=== PATIENT | female | born 1965 | race Two or more races ===

== ENCOUNTER 2024-01-12 15:00 | Outpatient (RCR) | payer MEDICAID, SELFPAY ==
--- NOTE | 2023-12-25 12:04 | PT.ODAYNRPT ---
PT Outpatient Daily Note OP Daily Note Outpatient Physical Therapy Treatment Date: 12/25/23 Visit Reasons: Left shoulder surgery Subjective: Continued L shoulder soreness and tightness Objective: See F/S for therex Ice x5' MHP during wand therex x5' Assessment: Pain limits overpressure into PROM FF, abd. Good PROM into ER to about 80 deg but abd limited to about 90 deg. Plan: Improve ROM of L shoulder Length of Time (minutes) of Treatment: 30 Minutes Procedure Charges Therapeutic Exercise 30 minutes: Yes
--- NOTE | 2023-12-27 09:37 | PT.ODAYNRPT ---
PT Outpatient Daily Note OP Daily Note Outpatient Physical Therapy Treatment Date: 12/27/23 Visit Reasons: Left shoulder surgery Subjective: Continued L shoulder soreness and tightness Objective: See F/S for therex Ice x5' MHP during wand therex x5' Assessment: Pain limits overpressure into PROM FF, abd. Good PROM into ER to about 80 deg but abd limited to about 90 deg. Plan: Improve ROM of L shoulder Length of Time (minutes) of Treatment: 30 Minutes Procedure Charges Therapeutic Exercise 30 minutes: Yes
--- NOTE | 2024-01-03 09:48 | PT.ODAYNRPT ---
PT Outpatient Daily Note OP Daily Note Outpatient Physical Therapy Treatment Date: 01/03/24 Visit Reasons: Left shoulder surgery Subjective: Pt reports L shoulder is still stiff and achy. Objective: Please see flow sheet for ther ex list. Assessment: Pt demonstrates poor AAROM due to pain response. Plan: Continue with POC, progress per post op protocol. Length of Time (minutes) of Treatment: 30 Minutes Procedure Charges Therapeutic Exercise 30 minutes: Yes
--- NOTE | 2024-01-05 13:56 | PT.ODAYNRPT ---
PT Outpatient Daily Note OP Daily Note Outpatient Physical Therapy Treatment Date: 01/05/24 Visit Reasons: Left shoulder surgery Subjective: Pt c/o painful and stiff shoulder. Objective: Please see flow sheet for ther ex list. Assessment: Pt guarded during PROM of L shoulder resulting in poor ROM. Plan: Continue with POC. Length of Time (minutes) of Treatment: 30 Minutes Procedure Charges Therapeutic Exercise 30 minutes: Yes
--- NOTE | 2024-01-09 15:45 | PT.ODAYNRPT ---
PT Outpatient Daily Note OP Daily Note Outpatient Physical Therapy Treatment Date: 01/09/24 Visit Reasons: Left shoulder surgery Subjective: Pt reports L shoulder soreness, stiffness and pain. Objective: Please see flow sheet for ther ex list. Assessment: Pt highly guarded and pain response limiting ROM during interventions assigned. Plan: Continue with POC. Length of Time (minutes) of Treatment: 30 Minutes Procedure Charges Therapeutic Exercise 30 minutes: Yes
--- NOTE | 2024-01-12 15:32 | PT.ODAYNRPT ---
PT Outpatient Daily Note OP Daily Note Outpatient Physical Therapy Treatment Date: 01/12/24 Visit Reasons: Left shoulder surgery Subjective: Pt reports L shoulder is really stiff and sore. Objective: Please see flow sheet for ther ex list. Assessment: Performed PROM, ROM limited due to pain response. Continued with focus on restoring ROM per post op protocol. Plan: Continue with POC. Length of Time (minutes) of Treatment: 30 Minutes Procedure Charges Therapeutic Exercise 30 minutes: Yes
== END 2024-01-20 23:59 | disposition home or self-care (01) ==
LOC: CPTX 15:00
PROVIDERS: PCP Orthopaedic Surgery; Referring Provider Orthopaedic Surgery; Visit Provider Orthopaedic Surgery
DX: M25.512 Pain in left shoulder (principal); I10 Essential (primary) hypertension; Z98.890 Other specified postprocedural states
CPT/HCPCS: 97110

== ENCOUNTER 2024-02-13 09:30 | Outpatient (RCR) | payer MEDICAID, SELFPAY ==
--- NOTE | 2024-01-22 12:20 | PT.ODAYNRPT ---
PT Outpatient Daily Note OP Daily Note Outpatient Physical Therapy Treatment Date: 01/22/24 Visit Reasons: left shoulder surgery Subjective: pt. states difficulty when extending elbow, pt. presents with L elbow stiffness, reports pain when reaching overhead per AROM flexion ther-ex Objective: See F/S for therex Assessment: pt. presents with L elbow stiffness with pain would benefit from PT to increase ROM and decrease pain. Pt can reach to about 100 deg into FF in supine and 95 deg into abduction Plan: continue PT per POC Length of Time (minutes) of Treatment: 30 Minutes Procedure Charges Therapeutic Exercise 30 minutes: Yes
--- NOTE | 2024-02-05 11:29 | PT.ODAYNRPT ---
PT Outpatient Daily Note OP Daily Note Outpatient Physical Therapy Treatment Date: 02/05/24 Visit Reasons: left shoulder surgery Subjective: Pt. reports pain when reaching overhead per AROM flexion ther-ex Objective: See F/S for therex Assessment: Pt can reach to about 100 deg into FF in supine and 95 deg into abduction Plan: continue PT per POC Length of Time (minutes) of Treatment: 30 Minutes Procedure Charges Therapeutic Exercise 30 minutes: Yes
--- NOTE | 2024-02-07 14:36 | PT.ODAYNRPT ---
PT Outpatient Daily Note OP Daily Note Outpatient Physical Therapy Treatment Date: 02/07/24 Visit Reasons: left shoulder surgery Subjective: Pt. reports pain when reaching overhead per AROM flexion ther-ex Objective: See F/S for therex Assessment: Pt can reach to about 100 deg into FF in supine and 95 deg into abduction Plan: continue PT per POC Length of Time (minutes) of Treatment: 30 Minutes Procedure Charges Therapeutic Exercise 30 minutes: Yes
--- NOTE | 2024-02-13 10:34 | PT.ODAYNRPT ---
PT Outpatient Daily Note OP Daily Note Outpatient Physical Therapy Treatment Date: 02/13/24 Visit Reasons: left shoulder surgery Subjective: Pt reports L shoulder is still stiff and painful. Feels pain has been the worst these few days, might be due to cold. Objective: Please see flow sheet for ther ex list. Assessment: Poor progress with interventions in clinic due to pt pain response and ROM limitation. Plan: Continue with POC. Length of Time (minutes) of Treatment: 30 Minutes Procedure Charges Therapeutic Exercise 30 minutes: Yes
== END 2024-02-20 23:59 | disposition home or self-care (01) ==
LOC: CPTX 09:30
PROVIDERS: PCP Orthopaedic Surgery; Referring Provider Orthopaedic Surgery; Visit Provider Orthopaedic Surgery
DX: M25.512 Pain in left shoulder (principal); Z98.890 Other specified postprocedural states
CPT/HCPCS: 97110

== ENCOUNTER 2024-03-01 13:00 | Outpatient (RCR) | payer MEDICAID, SELFPAY ==
--- NOTE | 2024-02-23 13:32 | PT.ODAYNRPT ---
PT Outpatient Daily Note OP Daily Note Outpatient Physical Therapy Treatment Date: 02/23/24 Visit Reasons: Left shoulder surgery Subjective: Pt reports progress is slow, feels R elbow is also interfering with L shoulder progress. Objective: Please see flow sheet for ther exlist. Assessment: Performed PROM within pt tolerance in shoulder ER and shoulder flexion. Plan: Continue with POC. Procedure Charges Therapeutic Exercise 30 minutes: Yes
--- NOTE | 2024-02-28 15:05 | PT.ODAYNRPT ---
PT Outpatient Daily Note OP Daily Note Outpatient Physical Therapy Treatment Date: 02/28/24 Visit Reasons: Left shoulder surgery Subjective: Pt c/o shoulder stiffness, mentioned it feeling like it is stuck when trying to reach overhead. Pt shared she had a follow up with doctor and she will be having an x-ray done on L elbow. Objective: Please see flow sheet for ther ex list. Assessment: Pt progress is slow, pt demonstrates poor GH translation. Plan: Continue with pOC. Length of Time (minutes) of Treatment: 30 Minutes Procedure Charges Therapeutic Exercise 30 minutes: Yes
--- NOTE | 2024-03-01 13:22 | PT.ODAYNRPT ---
PT Outpatient Daily Note OP Daily Note Outpatient Physical Therapy Treatment Date: 03/01/24 Visit Reasons: Left shoulder surgery Subjective: Pt reports pain and stiffness. Pt has a follow up with surgeon at the end of the month, currently waiting to be scheduled for an MRI of L elbow. Pt mentioned her surgeon will be requesting additional PT. Objective: Please see flow sheet for ther ex list. Pt shoulder AROM L shoulder Flexion 98 deg, Abd 75 deg.Pain scale 3/10. Assessment: Pt demonstrates slow progress with mobility due to pain response and secondary elbow pain and ROM limitation. Plan: Continue with POC. Length of Time (minutes) of Treatment: 30 Minutes Procedure Charges Therapeutic Exercise 30 minutes: Yes
== END 2024-03-22 23:59 | disposition home or self-care (01) ==
LOC: CPTX 13:00
PROVIDERS: PCP Orthopaedic Surgery; Referring Provider Orthopaedic Surgery; Visit Provider Orthopaedic Surgery
DX: M25.512 Pain in left shoulder (principal); Z98.890 Other specified postprocedural states
CPT/HCPCS: 97110

== ENCOUNTER 2024-05-13 17:02 | Emergency (ER) | payer MEDICAID, SELFPAY ==
[2024-05-13 17:04] VITALS: BMI 25.9
[2024-05-13 17:18] VITALS: BP 126/88; PULSE 82; RESP 18; TEMP 36.6; O2SAT 99
--- NOTE | 2024-05-13 17:18 | XR_ITS ---
Examination: CT brain head without contrast. 2-D sagittal coronal reconstructions Exam date and time: May 13, 2024 at 1816 hours INDICATIONS: Slurred speech facial numbness beginning 3 days ago CTDI: vol (mGy):47.8 DLP: (mGycm):934 Technique: Multiple CT axial sections of the brain have been obtained, 5 mm slice thickness. Contrast has not been administered. 2-D sagittal, coronal reconstructions have been obtained Low dose protocols were performed. One or more of the following dose reduction techniques were used; automated exposure control, adjustment of the mA and/or KV according to patient size, use of iterative reconstruction technique. Findings: Large area of edema in the left temporal parietal lobe, at least 6.5 x 5.7 cm Significant mass effect shift of the frontal horns to the right of the 7 mm No acute hemorrhage Fourth ventricle is midline Cranial vault intact IMPRESSION: Large area of edema in the left temporoparietal lobe with significant mass effect Highest on the differential list is cerebral metastatic disease versus primary brain neoplasm, infarct less likely but not excluded Recommend brain MRI follow up pre and postcontrast
--- NOTE | 2024-05-13 17:18 | EKG_ITS ---
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
--- NOTE | 2024-05-13 17:19 | PD.EDRME ---
Rapid Medical Screening Exam E Arrival date/time: 05/13/24 17:02 59-year-old female with no known medical history presents to the emergency room with a chief complaint of right-sided facial droop, right-sided facial numbness, weakness, forgetfulness, headaches x 1 week. Daughter at bedside states the symptoms got worse 3 days ago. I have greeted and performed a focused initial assessment of this patient. A comprehensive ED assessment and evaluation of the patient, analysis of all test results, and completion of the medical decision making process will be conducted by additional ED providers. Chief Complaint: General Adult/Misc Complain Time Seen by Provider: 05/13/24 17:07 Vital signs: Vital Signs Temperature 98 F 05/13/24 17:18 Pulse Rate 82 05/13/24 17:18 Respiratory Rate 18 05/13/24 17:18 Blood Pressure 126/88 H 05/13/24 17:18 Pulse Oximetry (%) 99 05/13/24 17:18 Oxygen Delivery Method Room Air 05/13/24 17:18 Vital signs reviewed by provider: Yes
[2024-05-13 18:23] LABS: Basophils % (Auto) 0 % (0-2.5); Eosinophils % (Auto) 0 % (0-10); Hematocrit 34.6 % (36.0-46.0); Hemoglobin 11.2 g/dL (12.0-16.0); Immature Granulocytes % (Auto) 0 % (0-0); Immature Granulocytes Auto 0.02 Thou/mm3 (0.00-0.00); Lymphocytes # (Auto) 1.5 Thou/mm3 (1.0-4.8); Lymphocytes % (Auto) 16 % (10-50); Mean Corpuscular HGB Conc 32.4 g/dl (31.0-37.0); Mean Corpuscular Hemoglobin 26.7 pg (25.0-35.0); Mean Corpuscular Volume 82 fL (80-100); Monocytes # (Auto) 0.8 Thou/mm3 (0.0-0.8); Monocytes % (Auto) 8 % (0-12); Neutrophils # (Auto) 7.1 Thou/mm3 (1.8-7.7); Neutrophils % (Auto) 76 % (37-80); Nucleated Red Blood Cell % 0 /100 WBC (0); Platelet Count 356 Thou/mm3 (140-440); RDW Standard Deviation 43.4 fL (36.4-46.3); White Blood Count 9.4 Thou/mm3 (3.6-11.0)
[2024-05-13 18:30] LABS: Partial Thromboplastin Time 27.6 Seconds (22.0-36.0); Prothrombin Time 11.4 Seconds (9.0-12.2)
[2024-05-13 18:42] LABS: Alanine Aminotransferase 8 U/L (10-49); Albumin, Serum 4.2 gm/dL (3.4-4.8); Albumin/Globulin Ratio 1.4 (1.2-2.2); Alkaline Phosphatase 67 U/L (46-116); Anion Gap 8 (7-16); Aspartate Amino Transferase 13 U/L (0-34); BUN/Creatinine Ratio 25 Ratio (12-20); Bilirubin,Total 0.3 mg/dL (0.3-1.2); Blood Urea Nitrogen 15 mg/dL (9-23); Calcium 10.2 mg/dL (8.3-10.6); Calcium (Corrected) 10.2 mg/dL (8.5-10.1); Carbon Dioxide 27.8 mMol/L (20.0-31.0); Chloride 103 mMol/L (98-107); Creatinine (Component) 0.6 mg/dL (0.6-1.3); Estimated Creatinine Clearance 79.9 mL/min (>60); Globulin 3.1 gm/dL (2.3-3.5); Glucose 107 mg/dL (74-106); Osmolality,Calculated 278 (275-295); Sodium 139 mMol/L (136-145); Total Protein 7.3 gm/dL (5.7-8.2); Troponin I < 0.002 ng/mL (0.0-0.045); eGFR > 60 See Note
[2024-05-13 19:16] LABS: Collection Type, Urine Clean Catch
[2024-05-13 19:35] VITALS: BP 134/90; PULSE 79; RESP 13; TEMP 36.7; O2SAT 100
[2024-05-13 19:38] LABS: Bilirubin,Urine Negative (Negative); Blood,Urine Negative (Negative); Clarity,Urine Clear (Clear/Hazy); Color,Urine Lt-Yellow (Lt Yel-Yel); Glucose, Urine Negative (Negative); Ketones,Urine Negative (Negative); Leukocyte Esterase,Urine Positive (Negative); Nitrite,Urine Negative (Negative); PH,Urine 6.5 (5.0-7.0); Protein,Urine Negative (Neg - Trace); RBC,Urine 2 /hpf (0-3); Specific Gravity,Urine 1.017 (1.001-1.035); Squamous Epithelial Cell,Urine 1 /hpf (0-5); Urobilinogen,Urine Negative mg/dL (0.0-1.0); WBC,Urine 5 /hpf (0-5)
--- NOTE | 2024-05-13 19:52 | EDNOTE_ITS ---
Altered Mental Status RME/HPI General Chief Complaint: General Adult/Misc Complain Stated Complaint: SENT BY PCP FOR POSS STROKE X 1 WK AGO Time Seen by Provider: 05/13/24 17:07 Arrival date/time: 05/13/24 17:02 RME / HPI RME / HPI narrative: 05/13/24 17:02 59-year-old female with no known medical history presents to the emergency room with a chief complaint of right-sided facial droop, right-sided facial numbness, weakness, forgetfulness, headaches x 1 week. Daughter at bedside states the symptoms got worse 3 days ago. I have greeted and performed a focused initial assessment of this patient. A comprehensive ED assessment and evaluation of the patient, analysis of all test results, and completion of the medical decision making process will be conducted by additional ED providers. This section includes all my notes and documentations, including HPI, PE, and ED course. Douglas Bosch MD HPI: 59-year-old female here with several days of generalized weakness, headache, dizziness, vomiting, confusion, and disorientation. No fever or chills. No neck stiffness. No chest pain or shortness of breath. No cough or congestion. No other complaints. ROS: All negative except as documented in HPI. Physical Exam: General: Alert and oriented X 1. Eyes: Conjunctivae and lids clear. PERRL. EOMI. ENT: No nasal congestion. Neck: Supple. No carotid bruit. No JVD. Heart: RRR. Lungs: No respiratory distress. Good air movement. No rhonchi, wheezing, rales. Abdomen: Soft and nontender. Legs: No clubbing, cyanosis, edema. Skin: Warm and dry. Neuro: Alert and oriented X 1. Cranial nerves II to XII grossly normal. No peripheral motor deficits. I reviewed all diagnostic test results. My interpretation of the EKG is sinus rhythm with no acute ST?T changes. My review of the head CT report is large left-sided temporal parietal mass with mass effect. My review of the chest/abdomen/pelvis CT report is no acute findings. Blood tests and urine tests no acute findings. At this point, diagnoses include brain mass. Treatment here included Keppra, Mannitol, and Decadron. Remained stable. At 2252, I spoke with Dr. Heath Garcia from [facility] regarding transfer. About the presentation and exam and diagnostics and treatments here. And need of further care. Will accept the patient. Douglas Bosch MD Related Data Home Medications ?Medication ?Instructions ?Recorded ?Confirmed ibuprofen 800 mg tablet 800 mg PO BID PRN Pain 04/0411/09/23 acetaminophen 325 mg tablet 650 mg PO QID PRN Pain 11/09/23 (Tylenol) acetaminophen 650 mg 650 mg PO Q6H PRN Pain 11/0811/09/23 tablet,extended release (Arthritis Pain Relief (acetaminophen) ER) diclofenac sodium 1 % topical gel 2 g topical QID PRN Pain 11/09/23 11/09/23 hydroxyzine HCl 25 mg tablet 25 mg PO HS 11/09/2310/21 omega-3 fatty acids-fish oil 684 1 cap PO QDAY 4 11/09/23 mg-1,200 mg capsule,delayed release Allergies Allergy/AdvReac Type Severity Reaction Status Date / Time No Known Allergies Allergy Verified 05/13/24 17:09 Review of Systems Review of Systems Systems Reviewed: All systems reviewed, normal except as documented Past Medical History Past Medical History NEUROLOGIC: Negative Neurological Disorders or Seizures CARDIAC: Negative Cardiac Disorders, Congestive Heart Failure, Edema (righ leg at times), Cellulitis or Hypertension RESPIRATORY: Positive Pneumonia ([facility] 2018); Negative Respiratory Disorders, Chronic Obstructive Pulmonary Disease (COPD), Tuberculosis or Sleep Apnea GASTROINTESTINAL: Positive Gastrointestinal Disorders (pt states has liver cyst, primary Dr following it); Negative Hepatitis GENITOURINARY: Positive Genitourinary Disorders and Kidney Stones (not sure if cyst or stones); Negative Renal Disease REPRODUCTIVE: Positive Previous Pregnancies (X5) MUSCULOSKELETAL: Positive Musculoskeletal Disorders, Arthritis and Rheumatoid Arthritis ENT: Negative Cataracts ENDOCRINE: Negative Endocrine Disorders, Diabetes Mellitus Type 1 or Diabetes Mellitus Type 2 HEMATOLOGIC: Negative Blood Disorders PSYCHO/SOCIAL: Positive Anxiety (AT TIMES DUE TO PHYSICAL PROBLEMS) OTHER HISTORY: Positive Hospitalization ([facility]P 2018 [facility]), Chicken Pox and Measles; Negative Autoimmune Disease, Shingles, Falls, Anesthesia Reactions, Chemotherapy, Radiation Therapy, MRSA, Mumps or Cancer Family History FAMILY HISTORY: Positive Family Psychiatric Problems (FATHER,SISTER(DEPRESSION,ANXIETY)), Family Respiratory Disorders (SISTER), Family Cardiac Disorders (SISTERS (CVA,HTN),FATHER (HEART MURMUR),MOTHER (CVA)), Family Gastrointestinal Problems (FATHER (PROSTATE)) and Family Surgery (SISTER,FATHER); Negative Family Cancer or Family Anesthesia Reaction Surgical History SURGICAL: Positive Joint Replacement and Section (X1); Negative Cardiac Surgery, Pacemaker, Endocrine Surgery, Ear Surgery, Eye Surgery, Nose Surgery, Oral Surgery, Tonsillectomy or Abdominal Surgery Social History SMOKING STATUS: Never smoker SECOND HAND EXPOSURE: No ED Exam Narrative Physical exam: As noted in HPI. Course Quality Measures none Orders Category Date Time Status CT Screening NOW Care 05/13/24 23:06 Completed EKG (ED ONLY) *Do not use* NOW Care 05/13/24 17:18 Completed Lopez [Urinary Catheter] QS Care 05/13/24 23:56 Completed MRI Screening NOW Care 05/13/24 18:[address] chest abdomen pelvis wwo Stat Exams 05/13/24 23:[address] head/brain wo con Stat Exams 05/13/24 17:18 Completed EKG (ED Only) Stat Exams 05/13/24 17:18 Draft MR head/brain wo/w con Stat Exams 05/13/24 Ordered CBC Stat Lab 05/13/24 17:46 Completed Comprehensive Metabolic Panel Stat Lab 05/13/24 17:46 Completed Drug Screen,Urine Stat Lab 05/13/24 18:45 Completed Magnesium Stat Lab 05/13/24 17:46 Completed Partial Thromboplastin Time Stat Lab 05/13/24 17:46 Completed Prothrombin Time with INR Stat Lab 05/13/24 17:46 Completed Troponin I Stat Lab 05/13/24 17:46 Completed Urinalysis Stat Lab 05/13/24 18:45 Completed Urine Culture Stat Lab 05/13/24 18:45 Received Dexamethasone Inj [Decadron Inj] Med 05/14/24 00:00 Discontinued 4 mg IV Q6HR Mannitol Inj 25% Med 05/13/24 23:31 Discontinued 12.5 gm IV .STK-MED ONE Mannitol Inj 25% Med 05/13/24 21:28 Discontinued 50 gm IV X1 ONE Mannitol Inj 25% Med 05/13/24 23:14 Discontinued 50 gm IV X1 ONE levETIRAcetam INJ [Keppra Inj] Med 05/14/24 09:00 Discontinued 1,000 mg IVP Q12HR levETIRAcetam INJ [Keppra Inj] Med 05/13/24 21:28 Discontinued 1,000 mg IVP X1 ONE Vital Signs Vital signs: Vital Signs Temperature 98 F 05/13/24 17:18 Pulse Rate 82 05/13/24 17:18 Respiratory Rate 18 05/13/24 17:18 Blood Pressure 126/88 H 05/13/24 17:18 Pulse Oximetry (%) 99 05/13/24 17:18 Oxygen Delivery Method Room Air 05/13/24 17:18 Altered Mental Status Patient data External records reviewed:: [facility] previous records (Per chart review, patient has no previous ED visits.) Clinical information provided by:: patient and family Social determinants that could affect healthcare access:: none Patient has the following chronic illnesses:: none How is presenting disease/condition affected by chronic disease/condition?: no chronic disease Evaluation data The following diagnostics were reviewed and interpreted by me:: lab results, radiology exam(s) and EKG tracing(s) Lab and/or radiology exams considered but not ordered:: none Interpretation Summary: Brain mass Medications / Prescriptions Medications or Prescriptions considered but not ordered:: none Medication administrations:: Medication Administration History Discontinued Medications Dexamethasone Sodium Phosphate (Dexamethasone Sod Phos Inj 10 Mg/Ml Vial) 4 mg IV Q6HR SARANYA Stop: 06/13/24 00:00 Last Admin: 05/13/24 23:28 Dose: 4 mg Documented By: JUAN LUIS Levetiracetam (Levetiracetam Inj 100 Mg/Ml Vial 5ml) 1,000 mg IVP X1 ONE Stop: 05/13/24 21:29 Last Admin: 05/13/24 21:59 Dose: 1,000 mg Documented By: CHIARA Levetiracetam (Levetiracetam Inj 100 Mg/Ml Vial 5ml) 1,000 mg IVP Q12HR SARANYA Stop: 06/13/24 08:59 Mannitol (Mannitol Inj 25% 12.5 Gm/50 Ml Vial) 50 gm IV X1 ONE Stop: 05/13/24 21:29 Last Admin: 05/13/24 23:27 Dose: Not Given Documented By: JUAN LUIS Non-Admin Reason: Discontinued Mannitol (Mannitol Inj 25% 12.5 Gm/50 Ml Vial) 50 gm IV X1 ONE Stop: 05/13/24 23:15 Last Admin: 05/13/24 23:49 Dose: 50 gm Documented By: JUAN LUIS Mannitol (Mannitol Inj 25% 12.5 Gm/50 Ml Vial) Confirm Administered Dose 12.5 gm IV .STK-MED ONE Stop: 05/13/24 23:32 Last Admin: 05/13/24 23:48 Dose: Not Given Documented By: JUAN LUIS Non-Admin Reason: Duplicate Medication on eMAR Keppra, Mannitol, Decadron Consultations Consultation(s) initiated? (list below): No Diagnosis Differential diagnosis altered mental status: alcoholic intoxication, altered mental status, delirium, dementia, hypoglycemia, hyponatremia, subarachnoid hemorrhage, sepsis and other (CVA, brain tumor) Most likely diagnosis given after review of the tests above:: Brain mass Admission Indicated Admission indicated?: not indicated Explain why admission is indicated or not indicated:: Patient requires a higher [id number], no neurosurgery service here. Admission Request Was there a request for admission?: No Disposition Plan Disposition Plan: Transfer (to [facility]) Critical Care Time Critical Care Time Critical Care Time: Yes Total Critical Care Time (min.): 42 Attestation: Due to a high probability of clinically significant, life threatening deterioration, the patient required my highest level of preparedness to intervene emergently and I personally spent this critical care time directly and personally managing the patient. This critical care time included obtaining a history; examining the patient; ordering and review of studies; arranging urgent treatment with development of a management plan; evaluation of patient's response to treatment; frequent reassessment; and discussions with family and other providers. It was exclusive of separately billable procedures and treating other patients and teaching time. Douglas Bosch MD Discharge Plan Plan Patient Disposition: [facility] Pt Being Transferred to: [facility] Service Needed for Transfer: Neurosurgery Prescriptions/Referrals Prescriptions/Med Rec: No Action ibuprofen 800 mg Tablet 800 mg PO BID PRN (Reason: Pain) acetaminophen [Tylenol] 325 mg Tablet 650 mg PO QID PRN (Reason: Pain) acetaminophen [Arthritis Pain Relief (acetam)] 650 mg tablet extended release 650 mg PO Q6H PRN (Reason: Pain) hydroxyzine HCl 25 mg Tablet 25 mg PO HS diclofenac sodium 1 % Gel 2 g TOPICAL QID PRN (Reason: Pain) Rx Instructions: apply to single elbow, wrist or hand; for hand includes palm/fingers/back of hand omega-3 fatty acids-fish oil 684-1,200 mg Capsule,Delayed Release(Dr/Ec) 1 cap PO QDAY Referrals: Brittany Anthony FNP [Primary Care Provider] - In 1 week Problem List Clinical Impression: Brain mass, AMS (altered mental status) Patient/Caregiver Discharge Instructions Print Language: Swedish Stand Alone Forms: Daniela Award Info., Patient Portal Info Letter
--- NOTE | 2024-05-13 20:05 | PC.NURSE ---
Transfer Packet sent to [facility]- Awaiting response.
--- NOTE | 2024-05-13 20:27 | PC.NURSE ---
Asaf States Pt need HLOC. Denies case at this time. Packet sent to [facility] at this time.
[2024-05-13 20:32] LABS: Amphetamine/Methamp Scrn,U Negative (Negative); Barbiturate Screen,Urine Negative (Negative); Benzodiazepines Screen,Urine Negative (Negative); Benzoylecgonine Screen, Ur Negative (Negative); Fentanyl Screen,Urine Negative (Negative); Opiate Screen,Urine Negative (Negative); THC Screen,Urine Negative (Negative)
--- NOTE | 2024-05-13 21:33 | PC.NURSE ---
Spoke to Brandee at [facility] states their Neuro surgeon recommends tertiary care at [facility], [facility], or [facility] will fax over paperwork for intent of transfer.
[2024-05-13] MEDS: levETIRAcetam INJ 100 MG/ML VIAL 5ML 1000 MG IVP (21:59)
[2024-05-13 22:01] VITALS: BP 120/73; PULSE 71; RESP 15; TEMP 36.7; O2SAT 99
--- NOTE | 2024-05-13 22:52 | PC.NURSE ---
Case presented to [facility] spoke to Mendez for transfer request. Imaging pushed through, packet faxed over. Stated they will present the case to receiving MD, for acceptance review
--- NOTE | 2024-05-13 23:06 | XR_ITS ---
Examination: CT chest with intravenous contrast CT abdomen with intravenous contrast CT pelvis with intravenous contrast CT abdomen chest without intravenous contrast CT abdomen without intravenous contrast CT pelvis without intravenous contrast 2-D coronal and sagittal reconstructions Time of exam: May 14, 2024 0104 hours INDICATIONS: Altered mental status this week, large area of edema most consistent with brain neoplasm on CT brain scan May 13, 2024, staging CTDI: vol (mGy) : 17.64 DLP: (mGycm): 1156 Technique: Multiple axial images of the chest, abdomen and pelvis with intravenous contrast, 3.0 mm slice thickness. Images obtained post intravenous injection Isovue 370 60 cc. 2-D sagittal and coronal reconstructions. Low dose protocols were performed. One or more of the following dose reduction techniques were used; automated exposure control, adjustment of the mA and/or KV according to patient size, use of iterative reconstruction technique. Findings: No thoracic aortic aneurysmal dilatation No pulmonary artery filling defects No paratracheal tracheobronchial or bronchopulmonary adenopathy No pneumonia, pulmonary edema or pulmonary mass lesions Atelectasis right lower lobe versus early pneumonia Low density indeterminate liver lesions Spleen is not enlarged No gallstones No pancreatic or adrenal mass Right renal parapelvic cysts No abdominal or pelvic lymphadenopathy Normal appendix No pelvic mass Urinary bladder Lopez catheter Moderate osteopenia IMPRESSION: No mediastinal lymphadenopathy No pulmonary edema, pleural disease or pulmonary mass lesions Recommend hepatic sonography to assess indeterminate subcentimeter liver lesions No abdominal or pelvic lymphadenopathy
--- NOTE | 2024-05-13 23:17 | PC.NURSE ---
Received call from Amira at the Transfer Center, Pt accepted to [email or web address] [address] [facility] [address] Pt is going to [address]. RN-RN report to be called at [phone]. Dr. Pete Combs accepting.
[2024-05-13] MEDS: DEXAMETHASONE SOD PHOS INJ 10 MG/ML VIAL 4 MG IV (23:28)
[2024-05-13 23:50] VITALS: BP 123/82; PULSE 75; RESP 13; TEMP 36.9; O2SAT 99
[2024-05-14 00:01] VITALS: BP 117/86; PULSE 75; RESP 12; O2SAT 98
--- NOTE | 2024-05-14 00:22 | PC.NURSE ---
Sang at transfer center updated on EMS ETA as requested. EMS ETA 0200
[2024-05-14 01:46] VITALS: BP 101/74; PULSE 71; RESP 16; TEMP 36.6; O2SAT 95
[2024-05-14 02:00] VITALS: BP 96/67; PULSE 71; RESP 13; TEMP 36.6; O2SAT 97
--- NOTE | 2024-05-14 02:20 | PC.NURSE ---
Report given to COBY Cannon at [facility]
--- NOTE | 2024-05-14 02:44 | PRELIM_ITS ---
CT scan of the chest, abdomen and pelvis without and with intravenous contrast (axial sections with sagittal and coronal reformats) May 14, 2024 0104 hours Clinical History: Brain tumor met Findings: Bibasilar streaky atelectasis is present, There isatelectasis/small infiltrate at the right lung base.There is no pleural effusion or pneumothorax. The thoracic aorta demonstrates atheromatous calcification without evidence of aneurysm. Coronary artery calcification is noted.No evidence of mediastinal mass or lymphadenopathy. There is a small pericardial effusion. Small hypodense lesions are noted in the liver, too small to characterize.The gallbladder, spleen, pancreas, adrenals and kidneys are unremarkable. Peripelvic cysts are seen on the right. No evidence of bowel obstruction. Fecal loading is seen in the rectum.The appendix is within normal limits. A Lopez catheter is seen in the urinary bladder. The uterus is unremarkable. There is no free fluid or free air. Degenerative changes are identified in the spine. Impression: No evidence of acute intra-abdominal or pelvic pathology. Atelectasis/small infiltrate at the right lung base. Recommend clinical correlation. Small hypodense lesions are noted in the liver, too small to characterize. Report Electronically Signed By: Adelina Lindsey 05/14/2024 2:43:46 AM [EST]
== END 2024-05-14 02:23 | disposition short-term general hospital (02) ==
PROVIDERS: Nurse Practitioner Family; Emergency Provider Emergency Medicine; PCP Nurse Practitioner Family
DX: G93.9 Disorder of brain, unspecified (principal); R41.82 Altered mental status, unspecified; R20.0 Anesthesia of skin; R53.1 Weakness
CPT/HCPCS: 51702; 36415; 70450; 71270; 74178; 80053; 80307; 81001; 83735; 84484; 85025; 85610; 85730; 87086; 93005; 96374; 96375; 99291; A4649; J1100; J1953; J2150; Q9967

== ENCOUNTER 2024-06-19 14:21 | Outpatient (RCR) | payer MEDICAID, SELFPAY ==
--- NOTE | 2024-06-06 16:25 | CTCCONSULT_ITS ---
[facility] [address] [place], [place] [address] Consultation Note Date: 06/06/2024 MR#: [id number] Name: SHANTELL BIGGS : 1965 Attending physician. 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 Barbara Chatman NP neuro-oncology [facility] Reason for consultation. Patient with glioblastoma left temporal area status post resection referred for postop radiation therapy. History of Present Illness: Patient is 59-year-old lady, went to ER with right sided facial droop and had CT scan of the brain 05/13/2024 revealing large area of edema in the left temporoparietal lobe with significant mass effect. Also has CT chest abdomen pelvis which was unremarkable. Was transferred to [facility] where MRI of the brain 05/14/2024 revealing left anterior temporal enhancing necrotic mass measuring 4 x 3 x 4.1 cm abutting the dural surface with substantial surrounding edema. 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 Postop MRI 05/16/2024 reveals interval left temporal creatinine me with gross total resection of previous noted enhancing mass. Gyriform areas of infarction involving left inferior frontal lobe and left lateral temporal lobe in addition to small parenchymal hematoma involving the inferior surface of the left temporal lobe noted. Patient has been referred to Dr. Jose Alfredo Hillman for the chemotherapy. Past Medical History: High blood pressure prior knee surgery Meds. Keppra Allergies none Social History: Patient [place]-speaking lives with daughter and her family in [facility] denies smoking drinking Review of Systems: Has some unsteadiness of feet when walking using walker but no focal weakness. Physical Exam: General: Adequately nourished appearing lady no acute distress HEENT: Well-healed craniotomy scar left temporal area CV: Clearly ulceration heart regular rate and rhythm ABD: Soft organomegaly or tenderness EXT: No signs of clubbing or edema Assessment: 1. WHO grade 4 glioblastoma left temporal area status post resection performed at [facility] 05/15/2024. 2. Postop radiation 6000 cGy as per RTOG guidelines with adequate margins with Dr. Hillman prescribing Temodar. Side effects explained. 3. Thank you very much for allowing me to evaluate and manage this patient Cc: [facility] neuro-oncology Electronically signed by: Osmel Bosch MD, DABR 06/06/2024 4:22 PM
--- NOTE | 2024-06-06 16:34 | CTCTXPLN_ITS ---
[facility] [address] [place], [place] [address] Physician Clinical Treatment Planning Note Date of Service: 06/06/2024 Name: SHANTELL KALYAN EngleB.: 1965 The patient has agreed to proceed with Radiation therapy. Tests and supporting medical records were interpreted to assist in defining the tumor location and extent of disease. Further imaging will be necessary to contour and delineate the volume to which the XRT will be provided. A. Treatment Intent: Curative B. Modality: 6 MV C. Requested Technique: VMAT D. Treatment Site: Left brain E. Critical structures to be contoured on plan: F. In order to accomplish this plan, I am ordering/Prescribing the followin. Simulations (s) will be performed to accomplish a reproducible treatment position, to determine optimal treatment portals/beam arrangements, to design beam modifying devices and verify treatment portals on patient prior to the commencement of Radiation Therapy. Brain 2. Devices; for immobilization and beam shaping: Aquaplast 3. CT Guidance for placement of XRT mayes Scan area: 4. Portal images Frequency: 5. Invivo transit dose measurement once per week on all VMAT patients. 6. Special Physics Consult Requested for: 7. Other requests: Special procedure chemo and radiation G. Dose Objectives: Curative Electronically signed by: Osmel Bosch M.D. 06/06/2024 4:31 PM
--- NOTE | 2024-06-06 16:36 | CTCTXPLNST_ITS ---
Radiation Oncology Treatment Planning Sheet Name: SHANTELL BIGGS MR#: [id number] : 1965 Dx: C71.2 Malignant neoplasm of temporal lobe (brain) Date of Service: 06/06/2024 Account #: ?? Pt Treatment Intent: curative palliative other: Stage: Procedure CPT # Ordered Spec. Procedure 57989 1 Knight Complex (set-up) 05488 Brain 1 Knight Simple 01153 IMRT Plan 13027 1 MLC Devices VMAT 18967 3 Knight 3 D 35532 TRTMT dev Complex 32510 1 TRTMT dev simple 12871 Basic Caleb 43464 9 Special Dosimetry 97299 Spec Physics 04855 Port Films 75937 SRS Cranial/1FX 71680 SBR 5 FX or Less /ex: 5 = 5 fx 79392 IMRT Simple 02685 6000 30 IMRT Complex 48673 IGRT 43473 25 Rad del com 6-10 79608 Rad del com 11- 49937 Cont Med Physics 89993 6 Treatment Planning 61108 1 Rad del com 20 mev 35267 Rad del inter 6- 21202 Rad del inter 11 94791 Rad del simple 6-10 18880 Rad del simple 11 46878 Special Port Plan 45484 TRTMT dev inter 26650 Isodose Complex 08202 Isodose simple 64863 Resp Motion Mgmt Simulation 53535 Placement of Fiducial Markers 58652 Electronically Signed By: Osmel Bosch MD, DABR 06/06/2024 4:34 PM
== END 2024-06-19 23:59 | disposition home or self-care (01) ==
LOC: SCTC 14:21
PROVIDERS: PCP Nurse Practitioner Family; Referring Provider Radiology Therapeutic Radiology; Visit Provider Radiology Therapeutic Radiology
DX: C71.2 Malignant neoplasm of temporal lobe (principal)
CPT/HCPCS: 77014; 77290; 77334

== ENCOUNTER 2024-07-19 11:00 | Outpatient (RCR) | payer MEDICAID, SELFPAY | END 2024-07-20 11:59 | disposition home or self-care (01) | LOC: SCTC 11:00 | PROVIDERS: PCP Nurse Practitioner Family; Referring Provider Nurse Practitioner Family; Visit Provider Radiology Therapeutic Radiology | DX: Z51.0 Encounter for antineoplastic radiation therapy (principal); C71.2 Malignant neoplasm of temporal lobe | CPT/HCPCS: 77300; 77301; 77338; 77385 ==

== ENCOUNTER 2024-08-19 10:54 | Outpatient (RCR) | payer MEDICAID, SELFPAY ==
--- NOTE | 2024-07-22 15:52 | CTCTRTNOTE_ITS ---
[facility] [address], [place] [address] Weekly Management Date: 07/22/2024 ?? Name: SHANTELL KALYAN EngleB.: 1965 Account #: ?? A. Patient is currently at [address]Gy[address] Hillman. B. Patient is tolerating treatment well. C. Resume radiation therapy. Electronically signed by: Osmel Bosch M.D. 07/22/2024 3:50 PM
== END 2024-08-19 23:59 | disposition home or self-care (01) ==
LOC: SCTC 10:54
PROVIDERS: PCP Nurse Practitioner Family; Referring Provider Nurse Practitioner Family; Visit Provider Radiology Therapeutic Radiology
DX: Z51.0 Encounter for antineoplastic radiation therapy (principal); C71.2 Malignant neoplasm of temporal lobe
CPT/HCPCS: 77336; 77385

== ENCOUNTER 2024-09-10 13:29 | Outpatient (RCR) | payer MEDICAID, SELFPAY | END 2024-09-19 23:59 | disposition home or self-care (01) | LOC: SCTC 13:29 | PROVIDERS: PCP Nurse Practitioner Family; Referring Provider Nurse Practitioner Family; Visit Provider Radiology Therapeutic Radiology | DX: Z51.0 Encounter for antineoplastic radiation therapy (principal); C71.2 Malignant neoplasm of temporal lobe | CPT/HCPCS: 77336; 77385; 99212; G0463 ==

== ENCOUNTER 2024-12-11 14:24 | Outpatient (RCR) | payer MEDICAID, SELFPAY ==
--- NOTE | 2024-12-11 15:06 | CTCFLWUP_ITS ---
[facility] [address] [place], [place] [address] FOLLOW-UP NOTE Date: 12/11/2024 MR#: [id number] Name: SHANTELL BIGGS : 1965 Dx: C71.2 Malignant neoplasm of temporal lobe (brain) Identification. Patient received Temodar and radiation therapy receiving 6000 cGy for GBM referred by [facility]. This was completed 08/27/2024 Patient is still receiving Temodar under Dr. Hillman's direction. As I see patient today patient appears to be walking gingerly but steadily and has no focal weakness. I told daughter that I could see her as needed in the future but for her to continue seeing Dr. Hillman and imaging studies and will be ordered soon as well. Electronically signed by: Osmel Bosch M.D. 12/11/2024 3:04 PM
== END 2024-12-20 23:59 | disposition home or self-care (01) ==
LOC: SCTC 14:24
PROVIDERS: PCP Nurse Practitioner Family; Referring Provider Nurse Practitioner Family; Visit Provider Radiology Therapeutic Radiology
DX: C71.2 Malignant neoplasm of temporal lobe (principal); Z92.3 Personal history of irradiation
CPT/HCPCS: 99213; G0463